=== PATIENT | female | born 1965 | race Caucasian/White ===

== ENCOUNTER → 2019-07-19 | Outpatient (CLI) | payer SELFPAY ==
--- NOTE | 2019-07-19 12:09 | PCVCIMAG ---
APPROVED REPORT Study performed: 07/19/2019 08:33:31 EXAM: Comprehensive 2D, Doppler, and color-flow Echocardiogram Patient Location: Echo lab Status: routine BSA: 1.98 HR: 66 bpmBP: 128/80 mmHg Rhythm: NSR Other Information Study Quality: Adequate Indications clinical research study 2D Dimensions IVSd: 11.08 (7-11mm) LVDd: 41.65 mm PWd: 8.51 (7-11mm)Ascending Ao: 28.40 (22-36mm) LVDs: 23.62 (25-40mm) Left Atrium: 39.79 (27-40mm) Aortic Root: 26.65 mm LV Single Plane 4CH: 61.83 % LV Single Plane 2CH: 56.93 % Biplane EF: 60.2 % Volumes Left Atrial Volume (Systole) Single Plane 4CH: 64.10 mLSingle Plane 2CH: 56.63 mL LA ESV Index: 32.00 mL/m2 Aortic Valve AoV Peak Jarad.: 1.39 m/s AO Peak Gr.: 7.69 mmHgLVOT Max P.64 mmHg LVOT Max V: 1.08 m/s Mitral Valve E/A Ratio: 1.5 MV Decel. Time: 234.27 ms MV E Max Jarad.: 0.75 m/s MV A Jarad.: 0.51 m/s IVRT: 103.81 ms Pulmonary Valve PV Peak Jarad.: 1.12 m/sPV Peak Gr.: 5.03 mmHg Pulmonary Vein P Vein S: 0.50 m/sP Vein A: 0.30 m/s P Vein D: 0.49 m/sP Vein A Dur.: 110.7 msec P Vein S/D Ratio: 1.02 Tricuspid Valve TR Peak Jarad.: 2.56 m/s TR Peak Gr.: 26.21 mmHg Left Ventricle The left ventricle is normal size. There is normal LV segmental wall motion. There is normal left ventricular wall thickness. Left ventricular systolic function is normal. The left ventricular ejection fraction is within the normal range. LVEF is 60%. Grade II - pseudonormal filling dynamics. Right Ventricle The right ventricle is normal size. The right ventricular systolic function is normal. Atria The left atrium size is normal. The right atrium size is normal. Aortic Valve The aortic valve is normal in structure. No aortic regurgitation is present. There is no aortic valvular stenosis. Mitral Valve The mitral valve is normal in structure. Mild mitral regurgitation. No evidence of mitral valve stenosis. Tricuspid Valve The tricuspid valve is normal in structure. Mild tricuspid regurgitation with PAP of 33 mmHg. Pulmonic Valve The pulmonary valve is normal in structure. There is mild pulmonic valvular regurgitation. Great Vessels The aortic root is normal in size. IVC is normal in size and collapses >50% with inspiration. Pericardium There is no pericardial effusion. There is no pleural effusion. <Conclusion> The left ventricle is normal size. Left ventricular systolic function is normal. The left ventricular ejection fraction is within the normal range. LVEF is 60%. Grade II - pseudonormal filling dynamics. The right ventricle is normal size. The left atrium size is normal. No aortic regurgitation is present. Mild mitral regurgitation. Mild tricuspid regurgitation with PAP of 33 mmHg. The aortic root is normal in size. There is no pericardial effusion.
== END | disposition home or self-care (01) ==
LOC: PCVCIMAG 08:54
PROVIDERS: ATTEND Internal Medicine Nephrology
DX: Z00.6 Encounter for examination for normal comparison and control in clinical research program (principal); I08.1 Rheumatic disorders of both mitral and tricuspid valves
CPT/HCPCS: 93306